=== PATIENT | female | born 1950 | race Caucasian/White ===

== ENCOUNTER → 2016-12-20 | Outpatient (CLI) | payer MEDICARE, BC ==
--- NOTE | 2016-12-15 16:07 | MH ---
cc: MAC LYONS M.D. DATE OF ADMISSION: 12/20/2016 December 20, 2016 ADMISSION DIAGNOSIS Cloudy posterior capsule right eye. HISTORY OF PRESENT ILLNESS This 66-year-old white female is coming through [facility] [place] for the purpose of a YAG laser posterior capsulotomy of the right eye. She has a history of cataract surgery with intraocular lens implants in both eyes and has done well postoperatively but now notices decreasing visual acuity and was found to have a cloudy posterior capsule in the right eye and elected to have a YAG laser posterior capsulotomy in that eye at this time. PAST MEDICAL HISTORY 1. The patient has a history of hyperthyroid. 2. Cholesterol problems. 3. Myocardial infarction. 4. Breast cancer. 5. Sleep apnea. 6. Muscular dystrophy. 7. And she actually is now hypothyroid. PAST SURGICAL HISTORY Surgical history includes: 1. Cardiac stent. 2. Colonoscopy. 3. Radioactive iodine for the thyroid which has now made her hypothyroid. 4. Bilateral cataract surgery. MEDICATIONS Daily medications include: 1. Synthroid. 2. Effexor. 3. Atorvastatin. 4. Baby aspirin. 5. Multivitamins. 6. Caltrate. 7. Vitamin D. 8. Co-Q10. 9. Ocular vitamins. ALLERGIES NO KNOWN ALLERGIES. SOCIAL HISTORY Noncontributory. FAMILY HISTORY Positive for cataracts in aunts. REVIEW OF SYSTEMS Noncontributory. PHYSICAL EXAMINATION EYES: On ocular exam the patient's best corrected visual acuity is 20/60 +2 in the right eye and 20/50 +2 in the left. Visual daly are full to confrontation testing. Extraocular muscle exam reveals full versions with orthophoria at distance and near. Pupils are 3 mm equal, round, reactive to light without afferent defect. 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 She has posterior chamber intraocular lens in place bilaterally with a cloudy posterior capsule in the right eye. Intraocular pressure is 18 in the right eye and 19 in the left by applanation tonometry. Dilated fundus exam revealed sharp disk with cup-to-disk ratio 0.2 bilaterally. There are retinal pigment epithelial changes and macular drusen present in each eye. The background is within normal limits. IMPRESSION 1. Cloudy posterior capsule right eye. 2. Macular degeneration both eyes - dry. 3. Pseudophakia both eyes. 4. Lagophthalmos. PLAN The plan is YAG laser posterior capsulotomy of the right eye through [facility] [place]. MD VENANCIO Holden/LIZZY /4:46 PM /4:02 PM
[~2016-12-20] MED LIST: ASPI-110 PO; CALTCHW5 PO; CO Q100C9 PO; FLUOROMETHOLONE 0.25% OPHT SUSP 5 ML BTL ONE; HYDR-3516 PO; LEVO75TA3 PO; LIPI40TA PO; MULTTAB67 PO; PHENYLEPHRINE HCL 2.5% OPTH SOLN 2 ML BTL ONE; PROPARACAINE HCL 0.5% OPHT SOLN 15 ML BTL ONE; TROPICAMIDE 1% OPHT SOLN 15 ML BTL ONE; VENL75TA PO; VITA100018 PO
--- NOTE | 2016-12-21 12:48 | MP ---
cc: MAC COLEMAN Corrected Copy: 03/15/17 DATE OF SURGERY: 12/20/2016 PREOPERATIVE DIAGNOSIS: Cloudy posterior capsule right eye. POSTOPERATIVE DIAGNOSIS: Cloudy posterior capsule right eye. OPERATION: YAG laser posterior capsulotomy, right eye. SURGEON: Mac Coleman MD ANESTHESIA: Topical. COMPLICATIONS: None. INDICATIONS: See history and physical previously dictated. PROCEDURE: The patient arrived at [facility]. Blood pressure was 130/88, pulse 82, respirations 16. A drop of Alphagan P and Mydriacyl were instilled in the right eye. The patient was seated at the YAG laser. A drop of Alcaine was instilled in the right eye and a YAG laser posterior capsulotomy lens was placed on the anterior surface of the right cornea. YAG laser posterior capsulotomy was carried out utilizing 49 exposures of 1.8 millijoules. An adequate opening was seen following the procedure. A drop of Alphagan P was instilled topically. The patient was given a prescription for a topical steroid to be used four times per day and has an appointment for follow up on the first postoperative day in my office. The patient left the [facility] in satisfactory condition. MD VENANCIO Holden/harry /10:44 AM /11:36 AM MTDD
== END ==
LOC: CEYE 08:55
PROVIDERS: ATTEND Ophthalmology
DX: H26.491 Other secondary cataract, right eye (principal); G47.30 Sleep apnea, unspecified; I25.2 Old myocardial infarction; G71.0 Muscular dystrophy; Z96.1 Presence of intraocular lens